=== PATIENT | female | born 1995 | race African-American/Black ===

== ENCOUNTER 2020-01-01 18:26 | Emergency (ER) | payer OTHER ==
[~2020-01-01] VITALS: Ht 157.5 cm; Wt 54.4 kg
[~2020-01-01 18:26] MED LIST: FLEXERIL PO; IBUPROFEN 600600 M1 PO; NOHOMEMEDICATIONS; VICODIN 5-5001 EACH PO
[2020-01-01 19:38] LABS: URINE BILIRUBIN 1+ (Negative); URINE BLOOD NEGATIVE (Negative); URINE CLARITY CLEAR; URINE COLOR ORANGE; URINE GLUCOSE-RANDOM* 1+ (Negative); URINE KETONES TRACE (Negative); URINE PROTEIN (DIPSTICK) 2+ (Negative); URINE UROBILINOGEN >= 8.0 E.U./dl (0.2-1.0)
[2020-01-01 19:39] LABS: URINE LEUKOCYTES-REFLEX 3+ (Negative); URINE NITRITE-REFLEX POSITIVE (Negative)
[2020-01-01 19:40] LABS: ICTOTEST (BILI CONFIRMATORY) Positive (Negative)
[2020-01-01 19:47] LABS: SQUAMOUS 0-3 Few /LPF (0-3)
[2020-01-01 19:48] LABS: BACTERIA-REFLEX 1-9 Few /HPF (None Seen); CASTS None Seen /LPF (None Seen); CRYSTALS None Seen /LPF (None Seen); URINE RBC None Seen /HPF (0-2); URINE WBC-REFLEX 6-15 Few /HPF (0-5)
[2020-01-01] MEDS ORDERED: KEFLEX500 M1 PO (20:06)
[2020-01-01] MEDS ORDERED: DIFLUCAN150 MG PO (20:06)
[2020-01-01 20:50] VITALS: BP 123/68
== END 2020-01-01 20:50 | disposition home or self-care (01) ==
LOC: ER 18:26
PROVIDERS: Physician Assistant
DX: B37.3 Candidiasis of vulva and vagina (principal); N39.0 Urinary tract infection, site not specified